=== PATIENT | female | born 1955 | race Caucasian/White ===

== ENCOUNTER → 2021-04-25 14:54 | Outpatient (ROUT) | payer OTHER, SELFPAY ==
[2021-04-25 16:35] LABS: Add Manual Diff / Slide Review NO; Basophils Absolute Auto 0 /uL (0-100); Basophils Percent Auto 0.5 % (0-2); Eosinophils Absolute Auto 0 /uL (0-450); Eosinophils Percent Auto 0.5 % (2-4); Hematocrit 38.8 % (36-46); Hemoglobin 13.2 g/dL (12.0-16.0); Lymphocytes Absolute Auto 1600 /uL (1100-4500); Lymphocytes Percent Auto 30.5 % (25-40); Mean Corpuscular Hemoglobin 30.1 PG (26-34); Mean Corpuscular Volume 88.4 fL (80-100); Monocytes Absolute Auto 300 /uL (0-900); Monocytes Percent Auto 5.8 % (3-14); Neutrophils Absolute Auto 3200 /uL (1500-7000); Neutrophils Percent Auto 62.7 % (50-75); Platelet Count 250 X10^3/uL (150-400); Red Blood Cell Count 4.38 X10^6/uL (4.0-5.2); White Blood Cell Count 5.1 X10^3/uL (4.5-11.0)
[2021-04-25 16:50] LABS: Alanine Aminotransferase 19 IU/L (<35); Albumin 4.2 g/dL (3.5-5.0); Albumin Globulin Ratio 1.4 (1.0-2.8); Alkaline Phosphatase 48 U/L (38-126); Aspartate Aminotransferase 61 IU/L (14-36); BUN Creatinine Ratio 17.4 (6-22); Bilirubin Total 0.7 mg/dL (0.2-1.3); Blood Urea Nitrogen 15 mg/dL (7-17); Calcium 9.7 mg/dL (8.4-10.2); Carbon Dioxide 31 mmol/L (22-32); Chloride 100 mmol/L (98-107); Cholesterol 228 mg/dL (140-199); Creatine Kinase 97 U/L (30-135); Estimated Glomerular Filt Rate > 60.0 mL/min (>60); Glucose 98 mg/dL (80-110); HDL Cholesterol 65 mg/dL (40-60); HEMOLYSIS < 15 (0-50); LDL Cholesterol Calculated 145 mg/dL (<100); Potassium 3.7 mmol/L (3.4-5.1); Sodium 138 mmol/L (137-145); Total Protein 7.2 g/dL (6.3-8.2); Triglycerides 91 mg/dL (35-150)
[2021-04-25 16:58] LABS: Troponin I < 0.012 ng/mL (0.01-0.034)
== END ==
PROVIDERS: Visit Provider Physician Assistant
DX: E78.5 Hyperlipidemia, unspecified (principal); R07.89 Other chest pain; R10.13 Epigastric pain
CPT/HCPCS: 80053; 80061; 82550; 84484; 85025

== ENCOUNTER → 2021-06-24 12:45 | Outpatient (CLI) | payer OTHER, SELFPAY ==
--- NOTE | 2021-06-24 | DI.RAD.S_ITS ---
PROCEDURE: [place] BARIUM SWALLOW INDICATIONS: CHEST PAIN COMPARISON: None. FINDINGS: Function: There is mildly decreased and delayed esophageal peristalsis. No elicited gastroesophageal reflux. There is normal transit of a calibrated barium tablet through the esophagus into the stomach. Morphology: Air-contrast images demonstrate normal mucosal morphology. Single contrast views show no esophageal strictures, extrinsic mass effects, or diverticula. Limited images of the stomach demonstrate normal appearance. IMPRESSION: Mild esophageal dysmotility. Dictated by: Alexander Durham M.D. on 06/24/2021 at 15:17 Approved by: Alexander Durham M.D. on 06/24/2021 at 15:20
== END ==
PROVIDERS: PCP Naturopath; Referring Provider Internal Medicine; Visit Provider Internal Medicine
DX: R07.9 Chest pain, unspecified (principal); K22.4 Dyskinesia of esophagus
CPT/HCPCS: 74220

== ENCOUNTER → 2021-10-22 10:11 | Outpatient (CLI) | payer OTHER, SELFPAY ==
--- NOTE | 2021-10-22 10:14 | DI.RAD.S_ITS ---
PROCEDURE: FL BARIUM SWALLOW W SPEECH INDICATIONS: Dysphagia, unspecified COMPARISON: TECHNIQUE: Examination was conducted in conjunction with speech pathology per standard protocol. In the lateral projection, filming was performed of the patient swallowing. AP projection filming may also be performed with patient swallowing. COMPARISON: [facility], , [place] BARIUM SWALLOW, 06/24/2021, 13:16. FINDINGS: Prominent C5-C6 and C6-C7 anterior osteophyte formation, with mass-effect/deformity of the posterior esophagus contour. Function: The oral preparatory phase appears normal, with proper containment. The subsequent oral propulsive phase, pharyngeal phase, and esophageal phase of swallowing also appear normal with all proffered substances. There was silent laryngeal penetration. No pathologic vallecular pooling. There is esophageal dysmotility. Morphology: No cricopharyngeal bar is identified. No cervical esophageal webs. No Zenker's diverticulum. No strictures. IMPRESSION: Silent laryngeal penetration. Prominent C5-C6 and C6-C7 anterior cervical osteophytes. Dictated by: Alexander Durham M.D. on 10/22/2021 at 17:27 Approved by: Alexander Durham M.D. on 10/22/2021 at 17:28
--- NOTE | 2021-10-22 16:43 | ST.SWALLOW ---
Visit Care Team Role Provider Type Estephanie Boss MAY Primary Care Provider Non-Staff Specialty: Naturopathy Address: [address] [place] [address], [id number] Email: Calin Urias MD Attending Provider Non-Staff Referring Provider Specialty: Otolaryngology (ENT) Address: [address] [place] [address], [facility] Email: Modified Barium Swallow Study DISABILITY AIDE Modified Barium Swallow Study Start: 10/22/21 17:16 Freq: Status: Active Protocol: Document 10/22/21 17:16 [place] (Rec: 10/22/21 17:16 [place] [id number]) Modified Barium Swallow Study Total Time Visit Start Time 10:30 Visit Stop Time 11:30 Total Visit Minutes [address] Calin Urias Reason for Referral Dysphagia Setting Setting Outpatient Care Patient Information Identification Type Name,ID Card Patient History The pt is a 65-yr-old female currently being seen by this DISABILITY AIDE for outpatient care targeting dysphagia and possible laryngeal and/or cricopharyngeal spasm. Since ~March 2021, the pt has been experiencing frequent sensations of a lump in her throat, typically appearing after oral intake, that progressively worsens to a choking sensation and is often accompanied or preceded by a burning sensation consistent with GERD/LPR, although diagnostic imaging has ruled that out. The pt has been following a strict GERD diet and lifestyle modifications (e.g., raised HOB, remaining upright 2-3 hrs after oral intake, etc.) for several months and is currently taking PPI medication with no noticeable relief of symptoms. The pt reported that in the last week she has a new symptom of burning in her throat and her tongue, which is very painful, and in the last day or two, a bubbling sensation in her throat. As a result of all these symptoms, the pt is consuming very little food, is losing weight, and expressed being quite discouraged. The pt underwent a barium swallow study at [facility] in May 2021 with the following findings: Function: There is mildly decreased and delayed esophageal peristalsis. No elicited gastroesophageal reflux. There is normal transit of a calibrated barium tablet through the esophagus into the stomach. Morphology: Air-contrast images demonstrate normal mucosal morphology. Single contrast views show no esophageal strictures, extrinsic mass effects, or diverticula. Limited images of the stomach demonstrate normal appearance. IMPRESSION: Mild esophageal dysmotility. Outpatient Speech Therapy was initiated 2 wks ago and is targeting laryngeal and pharyngeal relaxation to reduce potential laryngospasm and/or cricopharyngeal spasm. Today's MBS is ordered for evaluation of swallow function and safety. Subjective Observations The pt arrived on time, appearing weak and reported she was not doing well. Burning tongue symptoms had increased and the pt stated, I don't know how much longer I can go on like this. Words of encouragement were offered, the MBS procedure was explained, and the pt was agreeable to proceed. She appeared fatigued throughout the study but was able to consume all trials and follow all directions. Because the pt has been consuming such little amounts of food and because her symptoms typically worsen after oral intake, trials were limited in size and regular textures were not included. Patient Positioning Position View Lat-A/P Imaging Lateral View Textures Administered Trials Presented Thin Liquid via Spoon,Thin Liquid via Cup,Malcolm Liquid via Spoon,Malcolm Liquid via Cup,Honey Liquid via Spoon, Dysphagia Blenderized Textures Oral Phase Source: MBSIMP (TM) (C) Bolus Specific Scoring Grid Lip Closure No Impairment (WNL) Tongue Control During Bolus Hold No Impairment (WNL) Bolus Prep/Mastication No Impairment (WNL) Bolus Transport/Lingual Motion No Impairment (WNL) A/P Lingual Propulsion Delay No Oral Residue No Impairment (WNL) Nasal Regurgitation No Additional Oral Phase Observations Oral peripheral exam and oral prep and swallow phases were WNL with head in neutral position during intake. Lingual rocking and difficulty initiating a/p propulsion of the bolus was noted during a trial of thin liquid using chin tuck. Pharyngeal Phase Source: MBSIMP (TM) (C) Bolus Specific Scoring Grid Delayed Initiation of Pharyngeal Swallow No Soft Palate Elevation No Impairment (WNL) Tongue Base Strength/Range of Motion Mild Impairment Residue Along the Tongue Base WFL Laryngeal Elevation WFL Anterior Hyoid Movement Mild Impairment Epiglottic Range of Motion No Impairment (WNL) Vallecular Residue Trace Clearance of Vallecular Residue No Impairment (WNL) Laryngeal Vestibular Closure Mild Impairment Pharyngeal Stripping Wave Moderate Impairment Posterior Pharyngeal Wall Residue No Upper Esophageal Sphincter Opening Mild Impairment Residue in the Pyriform Sinuses No Esophageal Clearance Upright Position Mild Impairment Pharyngoesophageal Backflow Observed No Additional Pharyngeal Phase Observations Flash penetration of thin liquids, silent in nature, with trace residue above the VFs was observed in all thin liquid trials. Chin tuck and supraglottic swallow maneuvers were not effective in preventing penetration. No other laryngeal penetration and no tracheal aspiration were observed. Prominent osteophytes were observed at C5-C6 and C6-C7 with mass-effect/deformity of the posterior esophagus contour, per Radioloist's report. This altered bolus flow, particularly at C-7 level, but did not prevent bolus flow. Trace esophageal residue was observed at C-7 level post-swallow. Opening of the UES was mildly reduced in distention and duration. Base of tongue was mildly weak allowing for a narrow column of contrast between base of tongue and the posterior pharyngeal wall. Pharyngeal stripping was was diminished. Epiglottic inversion was complete, Minimal pharyngeal residue was observed throughout the study. Hyolaryngeal elevation was WNL with mildly reduced anterior propulsion, which improved with greater bulk. The pt was observed to consistently swallow air with each trial, which was seen in both lateral and A/P views. No burping was noted during the study; however, it is likely that eventual belching could elicit the bubbling sensation that the pt reports. Question if this could also elicit backflow of stomach acid in the absence of GERD. A/P View Textures Administered Trials Presented Malcolm Liquid via Cup,Barium Tablet A/P View Observations Pharyngeal Contraction No Impairment (WNL) Esophageal Function Slowed Clearing,Poor Motility, Stasis Esophageal Observations Esophageal Function Upon initial A/P viewing, the esophagus was scanned prior to additional trials. Stasis of contrast was observed at medial to distal levels. NTL passed to the stomach without delay. Barium paste passed more slowly, requiring additional swallows. Air bubbles were observed with both NTL and paste trials. A 13mm barium tablet slowed momentarily in the medial esophagus, then passed quickly to the LES, where it remained after 2-3 additional swallows of water. During this time, the pt reported feeling a sticking sensation at the base of her throat, although no residue was observed in the pharynx, indicating referred sensation. The tablet was not observed to pass into the stomach. Clinical Impressions Dysphagia Type Mild Pharyngeal Dysphagia with Moderate Aerophagia Findings The pt presents with mild pharyngeal dysphagia secondary to mildly reduced strength of laryngeal and pharyngeal musculature resulting in laryngeal penetration of thin liquids (silent in nature), reduced pharyngeal stripping wave and reduced extension and duration of UES. Prominent osteophytes at C5-C6 and C6-C7 alter bolus flow and may contribute to the pt's sticking and/or choking sensation, although prevention of bolus flow was not observed with liquid and paste trials. The pt also exhibited slowed motility and stasis in the esophagus with referred sensation of the bolus sticking in the throat when actually the barium tablet was lodged above the LES. The pt also presents with moderate aerophagia. She was observed to swallow air with each trial, as air bubbles were consistently observed in both the pharynx and esophagus. No burping was noted during the study; however, it is likely that eventual belching could elicit the bubbling sensation that the pt reports. Question if this could also elicit backflow of stomach acid in the absence of GERD, further contributing to the pt's burning throat and mouth and bolus sensations. Additional consultation with GI may be warranted. Speech Therapy will also target reducing the habit of swallowing air. Given the pt's significantly reduced oral intake over the last many months, and considering that nutritional deficiency is a known contributor to Burning Tongue Syndrome as well as can impact stomach acid production, it is strongly recommended that the pt work with a Clinical Dietitian to address her nutritional needs as she may be at high risk of malnutrition. MBS findings were reviewed with the pt immediately following the study, and these recommendations were made. The pt was in agreement. DISABILITY AIDE suggested that the pt may benefit from myofascial release treatment to reduce tension in the laryngeal and pharyngeal areas and overall assist with stress reduction. Physical Therapist Dr. Debbi White, who is trained in myofascial release, consulted briefly with the pt and this DISABILITY AIDE and felt that such treatment held potential for relief of some of the pt's symptoms. Rehabilitation Potential Good Patient Appropriate for Therapy Yes Recommendations Diet Liquids Order Thin Diet Order Dysphagia Mechanical Medication Recommendation As Tolerated Aspiration Precautions Recommended Precautions Upright at 90 Degrees, Alternate Liquids/Solids,Small Bites/Sips,Effortful Swallow Treatment Plan Therapy Recommendations Outpatient Speech Therapy Recommended Referrals Primary Care Physician,GI Consult,Dietary Consult, Physical Therapy Additional Recommended Referrals Follow up with PCP. Pt may benefit from mental health counseling.
== END ==
PROVIDERS: PCP Naturopath; Referring Provider Otolaryngology; Visit Provider Otolaryngology
DX: R13.10 Dysphagia, unspecified (principal); K22.4 Dyskinesia of esophagus
CPT/HCPCS: 74230; 92526; 92611